=== PATIENT | female | born 1980 | race Caucasian/White ===

== ENCOUNTER 2017-06-13 19:57 | Emergency (ER) | payer OTHER ==
[2017-06-13 20:07] VITALS: BP 115/63
--- NOTE | 2017-06-13 20:37 | UC ---
Abdirahman Agarwal Nikita, scribed for Antonia Garrett MD on 06/13/17 at 2030 . Laceration HPI - HPI Summary HPI Summary: This patient is a 36 year old F presenting to [facility] with a chief complaint of a laceration since this evening. Pt was peeling a butternut squash when she cut a flab of her L thumb. The CC is described as a constant throbbing. The patient rates the pain 7/10 in severity. Symptoms aggravated by movement of her hand/ fingers. Symptoms alleviated by nothing. Pt reports profuse bleeding. Tetanus is UTD. - History Of Current Complaint Chief Complaint: UCLowerExtremity Stated Complaint: FINGER INJURY Time Seen by Provider: 06/13/17 20:09 Hx Obtained From: Patient Hx Last Menstrual Period: 05/18/17 Laceration Location: Finger - L thumb Mechanism Of Injury: Sharp Trauma Severity: Moderate Pain Intensity: 7 Pain Scale Used: 0-10 Numeric Aggravating Factors: Movement Related History: Dominant Hand Right - Allergies/Home Medications Allergies/Adverse Reactions: Allergies Allergy/AdvReac Type Severity Reaction Status Date / Time No Known Allergies Allergy Verified 06/13/17 20:06 Home Medications: Home Medications Control Pill 1 06/13/17 [History] Herbal Suppliments 06/13/17 [History] PMH/Surg Hx/FS Hx/Imm Hx Previously Healthy: Yes Endocrine History: Other Other Endocrine History: No DM Cardiovascular History: Other Other Cardiovascular History: No CAD, HTN - Surgical History Surgical History: None - Family History Known Family History: Negative: Cardiac Disease, Hypertension, Diabetes - Social History Occupation: Employed Full-time - music department at , [employer]. Alcohol Use: Daily Substance Use Type: None Smoking Status (MU): Never Smoked Tobacco Review of Systems Constitutional: Negative Musculoskeletal: Other: - laceration on L thumb, profuse bleeding at site Is Patient Immunocompromised?: No All Other Systems Reviewed And Are Negative: Yes Physical Exam Triage Information Reviewed: Yes Appearance: Well-Appearing Vital Signs: Initial Vital Signs Temp 98.9 F 06/13/17 20:02 Pulse 75 06/13/17 20:02 Resp 18 06/13/17 20:02 BP 115/63 06/13/17 20:02 Pulse Ox 100 06/13/17 20:02 Respiratory Exam: Normal Cardiovascular Exam: Normal Skin Exam: Other - 7 mm laceration at lateral tip of left thumb. Sealed well with adhesive. Laceration Repair - Laceration Repair 1 Description: Linear Laceration Size After Repair: Length (cm) - .7 Modified For Repair: No Cleansing Completed Via Routine Prep: Yes Closure Material: Skin Adhesive, SteriStrips Laceration Course/Dx - Course/Dx Course Of Treatment: adhesive, steristrips and finger dressing. - Differential Dx - Laceration/Wound Differental Diagnoses: Laceration Provider Diagnoses: laceration left hand distal phalanx. Discharge - Discharge Plan Condition: Stable Disposition: HOME Patient Education Materials: Steristrips (ED), Finger Laceration (ED) Additional Instructions: As discussed, keep the finger as dry as possible. Remove the finger dressing tomorrow, and keep the wound covered with a fingertip dressing. There is very low risk of infection; monitor for any drainage or increasing redness. The documentation as recorded by the Abdirahman renee Nikita accurately reflects the service I personally performed and the decisions made by , Antonia Garrett MD.
== END 2017-06-13 20:40 | disposition home or self-care (01) ==
LOC: UCEAST 19:57
DX: S61.012A Laceration without foreign body of left thumb without damage to nail, initial encounter (principal); W26.0XXA Contact with knife, initial encounter; Y93.9 Activity, unspecified; Y92.9 Unspecified place or not applicable; Y99.9 Unspecified external cause status
CPT/HCPCS: 12001; 99201; G0463